=== PATIENT | male | born 1960 ===

== ENCOUNTER 2020-09-20 05:42 | Day surgery (SDC) | payer OTHER ==
[~2020-09-20 05:42] MED LIST: SINGULAIR10 MG PO; VENTOLIN HFA18 GM IH
[2020-09-20] MEDS ORDERED: PERCOCET 5-3251 EACH PO (09:43)
[2020-09-20] MEDS ORDERED: NEURONTIN300 MG PO (09:43)
[2020-09-20] MEDS ORDERED: KETO10TA2 PO (09:44)
== END 2020-09-20 17:25 | disposition home or self-care (01) ==
LOC: CIR.AMB 05:42
PROVIDERS: ATTEND Surgery
DX: K64.8 Other hemorrhoids (principal); K64.4 Residual hemorrhoidal skin tags; Z20.828 Contact with and (suspected) exposure to other viral communicable diseases